=== PATIENT | female | born 1955 | race Caucasian/White ===

== ENCOUNTER → 2016-03-27 | Outpatient (CLI) | payer BC ==
[~2016-03-27] MED LIST: ALBINS/ INH; AZIT250T PO; BIOT1CHW PO; CALC-354 PO; CHOL1000 PO; CHOL100010 PO; FLUO20CA35 PO; GLUCTAB7 PO; HYDC25 PO; HYDR25TA5 PO; LOSA50TA6 PO; MISCTAB26 PO; MULTTAB58 PO; OMEG10007 PO; PRED20TA PO; SPIR1TAB PO; TAUR500C PO; TRAZ100T29 PO
--- NOTE | 2016-03-27 09:42 | DIAGNOSTIC IMAGING REPORT ---
CHEST CT WITHOUT CONTRAST CT DOSE: 272.67 mGycm HISTORY: Pulmonary nodules MULTIPLE PULMONARY NODULES TECHNIQUE: Multiaxial CT images of the chest were performed without contrast. COMPARISON: 06/16/2015 FINDINGS: Stable micronodularity of the upper lung regions. Several small stable calcified granulomas. Triangular density involving the left anterior lingula as well as medial right middle lobe unchanged. The appearance on the lingular findings suggests fibrotic and/or atelectatic change. No significant mediastinal or hilar adenopathy. IMPRESSION: 1. Unchanging micronodularity throughout the upper lungs. 2. Interval small triangular density of the lingula most consistent with that of atelectatic change. Nevertheless a six-month follow-up is again suggested. Please refer to below summary of Fleischner criteria recommendations for follow-up of incidental CT nodules (Beth Cleary, Guidelines for management of small pulmonary nodules detected on CT scans: A statement from the Fleischner Society, Radiology 237: [phone].) Low Risk Patient: Minimal or no smoking or other known risk factors for malignancy <=4 mm: No follow-up needed. >4-6 mm: Initial follow-up CT at 12 months; if unchanged, no further follow-up. >6-8 mm: Initial follow-up CT at 6-12 months then at 18-24 months if no change. >8 mm: Follow-up CT at \R\3, 9, 24 months, or PET and/or biopsy. High Risk Patient: History of smoking or other known risk factors <=4 mm: Follow-up at 12 months; if unchanged, no further follow-up. >4-6 mm: Initial follow-up CT at 6-12 months then at 18-24 months if no change. >6-8 mm: Initial follow-up CT at 3-6 months then at 9-12 and 24 months if no change. >8 mm: Same as low risk patient. Note: Nodule size measured as average of length and width. Ground glass or partly solid nodules may require longer follow-up to exclude indolent adenocarcinoma. Electronically signed by: Marcus Rabago M.D. 03/27/2016 9:41 AM
== END | disposition home or self-care (01) ==
LOC: C.CTS 09:07
PROVIDERS: ATTEND Internal Medicine Pulmonary Disease
DX: R91.8 Other nonspecific abnormal finding of lung field (principal)

== ENCOUNTER → 2016-07-02 | Outpatient (CLI) | payer BC ==
[~2016-07-02] MED LIST changes: -ALBINS/ INH; -AZIT250T PO; -CHOL1000 PO; -HYDR25TA5 PO; -PRED20TA PO
[2016-07-02 13:37] LABS: BASO % 0.2 %; BASO ABS # 0.01 K/uL (0-0.2); COMPLETE YES; EOS % 0.8 %; HEMATOCRIT 40.4 % (37-47); IG% 0.2 %; LYMPH % 25.1 %; LYMPH ABS # 1.48 K/uL (1.2-3.4); MEAN CELL VOLUME 90.4 fL (80-100); MEAN CORPUSCULAR HEMOGLOBIN 30.6 pg (25-34); MEAN CORPUSCULAR HGB CONC 33.9 g/dl (32-36); MEAN PLATELET VOLUME 9.8 fL (7.4-10.4); MONO % 4.6 %; NEUT % 69.1 %; PLATELET COUNT 283 K/uL (130-400); RED BLOOD COUNT 4.47 M/uL (4.2-5.4); WHITE BLOOD COUNT 5.89 K/uL (4.8-10.8)
[2016-07-02 14:11] LABS: ALT/SGPT 29 U/L (12-78); BLOOD UREA NITROGEN 13 mg/dl (7-18); CALCIUM 8.9 mg/dl (8.5-10.1); CARBON DIOXIDE 29 mmol/L (21-32); CHLORIDE 102 mmol/L (98-107); CHOLESTEROL 234 mg/dl (0-200); GLUCOSE 97 mg/dl (70-99); POTASSIUM 3.4 mmol/L (3.5-5.1); SODIUM 139 mmol/L (136-145); TRIGLYCERIDES 178 mg/dl (0-150); VERY LOW DENSITY LIPOPROT CALC 36 mg/dl
[2016-07-02 14:15] LABS: ESTIMATED AVERAGE GLUCOSE 114 mg/dl; HA1C FLAG Normal (Normal)
[2016-07-02 14:21] LABS: ALB/GLOB RATIO 1.1 (0.9-2); ALKALINE PHOSPHATASE 97 U/L (45-117); AST/SGOT 26 U/L (15-37); CHOLESTEROL/HDL RATIO 4.7; HDL CHOLESTEROL 50 mg/dl; LDL CHOLESTEROL CALCULATED 148 mg/dl
== END | disposition home or self-care (01) ==
LOC: C.LAB1850 10:15
PROVIDERS: ATTEND Internal Medicine
DX: Z00.00 Encounter for general adult medical examination without abnormal findings (principal); E78.00 Pure hypercholesterolemia, unspecified; I10 Essential (primary) hypertension; I51.7 Cardiomegaly

== ENCOUNTER → 2016-07-13 | Outpatient (CLI) | payer BC ==
--- NOTE | 2016-07-13 16:33 | MAMMOGRAPHY REPORT ---
BILATERAL DIGITAL SCREENING MAMMOGRAM TOMOSYNTHESIS WITH CAD: 07/13/2016 CLINICAL HISTORY: Routine screening. Patient has no complaints. TECHNIQUE: Breast tomosynthesis in addition to standard 2D mammography was performed. Current study was also evaluated with a Computer Aided Detection (CAD) system. COMPARISON: Comparison is made to exams dated: 07/13/2015 mammogram, 07/09/2014 mammogram, 07/08/2013 mammogram, 07/07/2012 mammogram, 07/09/2011 mammogram, and 07/05/2011 mammogram - [facility]. BREAST COMPOSITION: The tissue of both breasts is heterogeneously dense, which may obscure small ma sses. FINDINGS: No suspicious masses, calcifications, or areas of architectural distortion are noted in e ither breast. There has been no significant interval change compared to prior exams. Scattered bilat eral benign-appearing calcifications are not significantly changed. IMPRESSION: ACR BI-RADS CATEGORY 2: BENIGN There is no mammographic evidence of malignancy. A 1 year screening mammogram is recommended. The p atient will receive written notification of the results. Approximately 10% of breast cancers are not detected with mammography. A negative mammographic repor t should not delay biopsy if a clinically suggestive mass is present. Tammy Stone M.D. ah/:07/13/2016 15:39:23 Corporate Risk Analyst: Clarice FERNANDES(Abdoul)(M), [facility] letter sent: Normal 1/2 BI-RADS Code: ACR BI-RADS Category 2: Benign
== END | disposition home or self-care (01) ==
LOC: C.MAMM 09:07
PROVIDERS: ATTEND Obstetrics & Gynecology
DX: Z12.31 Encounter for screening mammogram for malignant neoplasm of breast (principal)

== ENCOUNTER → 2016-12-27 | Outpatient (CLI) | payer BC ==
--- NOTE | 2016-12-27 09:41 | DIAGNOSTIC IMAGING REPORT ---
(CHEST) THORAX WITHOUT CLINICAL HISTORY: 61 years-old Female presenting with R91.8 Multiple lung nodules on contrast ct chest DO IN Dec. TECHNIQUE: Multidetector CT imaging of the chest was performed without the use of intravenous contrast. IV contrast: None. A dose lowering technique was used consistent with the principles of ALARA (as low as reasonably achievable). COMPARISON: 03/27/2016. CT DOSE (mGy.cm): The estimated cumulative dose is 253.10 mGy.cm. FINDINGS: Analytical Scientist topogram: Unremarkable. On soft tissue windows, normal thyroid and thoracic inlet. No axillary, supraclavicular, or mediastinal lymphadenopathy. Evaluation of the jose limited without intravenous contrast. Normal aorta. Mild multichamber enlargement of the heart. Trace pericardial effusion. No pleural effusion. Upper abdomen normal. On lung windows, interval development of patchy bandlike groundglass opacities at the lung bases, likely atelectasis. Calcified granuloma noted in the lingula. Pulmonary cyst or trace emphysema at the right apex, unchanged. Solid 5 mm right middle lobe pulmonary nodule unchanged (series 4 image 203). Stable punctate nodules at the lung apices. Airways patent. On bone windows, mild degenerative changes of thoracic spine. IMPRESSION: 1. Solid 5 mm right middle lobe nodule is unchanged since 2014. This is consistent with benign etiology. Punctate nodularity at the apices also unchanged. These nodules do not warrant further follow-up per Noni Society 2017 recommendations below. Consider annual screening for lung cancer as clinically indicated if the patient has an extensive smoking history. 2. Bibasilar atelectasis. Please refer to below summary of Fleischner Society 2017 recommendations for follow-up of incidental CT nodules (H Madiha et al. Guidelines for management of incidental pulmonary nodules detected on CT images: From the Fleischner Society 2017. Radiology 2017; 284: 228-243.) SOLID NODULES Single nodule; size < 6 mm * Low risk patients: No routine follow-up * High risk patients: Optional CT at 12 months Single nodule; size 6-8 mm * Low risk patients: CT at 6-12 months, then consider CT at 18-24 months * High risk patients: CT at 6-12 months, then at 18-24 months Single nodule; size > 8 mm * Either low or high risk patients: Considered CT at 3 months, PET/CT, or tissue sampling Multiple nodules; size < 6 mm * Low risk patients: No routine follow up * High risk patients: Optional CT at 12 months Multiple nodules; size 6-8 mm * Low risk patients: CT at 3-6 months, then consider CT at 18-24 months * High risk patients: CT at 3-6 months, then at 18-24 months Multiple nodules; size > 8 mm * Low risk patients: CT at 3-6 months, then consider at 18-24 months * High risk patients: CT at 3-6 months, then at 18-24 months Note: These guidelines apply to incidental nodules. These guidelines do not apply to patients younger than 35 years, immunocompromised patients, or patients with cancer. * Low risk patients: Minimal or absent history of smoking and/or other known risk factors * High risk patients: History of smoking, exposure to other carcinogens, emphysema, fibrosis, upper lobe location, family history of lung cancer, etc. * If a nodule up to 8 mm is partly solid or is ground glass, further follow-up is required after 24 months to exclude possible slow growing adenocarcinoma. SUBSOLID NODULES Single ground-glass nodule * Nodule size < 6 mm: No routine follow-up * Nodule size > or = 6 mm: CT at 6-12 months to confirm persistence, then CT every 2 years until 5 years Single part-solid nodule * Nodule size < 6 mm: No routine follow-up * Nodules size > or = 6 mm: CT at 3-6 months to confirm persistence. If unchanged and solid component remains < 6 mm, annual CT should be performed for 5 years Multiple nodules * Nodule size < 6 mm: CT at 3-6 months. If stable, consider CT at 2 and 4 years. * Nodules size > or = 6 mm: CT at 3-6 months. Subsequent management based on the most suspicious nodule(s) Electronically signed by: Moiz Mojica M.D. 12/27/2016 9:40 AM Dictated Date/Time: 12/27/2016 9:32 AM
== END | disposition home or self-care (01) ==
LOC: C.CTS 09:15
PROVIDERS: ATTEND Internal Medicine Pulmonary Disease
DX: R91.8 Other nonspecific abnormal finding of lung field (principal); J98.11 Atelectasis

== ENCOUNTER → 2017-01-09 | Outpatient (CLI) | payer BC ==
[2017-01-09 09:57] LABS: BLOOD UREA NITROGEN 10 mg/dl (7-18); CARBON DIOXIDE 31 mmol/L (21-32); CHLORIDE 101 mmol/L (98-107); CREATININE 1.01 mg/dl (0.60-1.20); GLUCOSE 100 mg/dl (70-99); MAGNESIUM 2.3 mg/dl (1.8-2.4); POTASSIUM 3.5 mmol/L (3.5-5.1); SODIUM 137 mmol/L (136-145)
[2017-01-09 10:00] LABS: CHOLESTEROL 238 mg/dl (0-200); CHOLESTEROL/HDL RATIO 4.2; HDL CHOLESTEROL 57 mg/dl; LDL CHOLESTEROL CALCULATED 163 mg/dl; TRIGLYCERIDES 92 mg/dl (0-150); VERY LOW DENSITY LIPOPROT CALC 18 mg/dl
== END | disposition home or self-care (01) ==
LOC: C.LAB1850 08:33
PROVIDERS: ATTEND Internal Medicine
DX: I10 Essential (primary) hypertension (principal); E78.00 Pure hypercholesterolemia, unspecified

== ENCOUNTER → 2017-02-11 | Outpatient (CLI) | payer BC ==
--- NOTE | 2017-02-11 16:12 | DIAGNOSTIC IMAGING REPORT ---
CHEST 2 VIEWS ROUTINE CLINICAL HISTORY: COUGH PRODUCTIVE W/ PURULENT SPUTUM dyspnea COMPARISON STUDY: 07/08/2013 FINDINGS: Lungs are considered clear. Mild chronic atelectatic/fibrotic change left lung base. No evidence for cardiac enlargement. IMPRESSION: Chronic change left base. No acute process. The above report was generated using voice recognition software. It may contain grammatical, syntax or spelling errors. Electronically signed by: Marcus Rabago M.D. 02/11/2017 4:11 PM Dictated Date/Time: 02/11/2017 4:11 PM
== END | disposition home or self-care (01) ==
LOC: C.RAD1850 15:58
PROVIDERS: ATTEND Internal Medicine
DX: R05 Cough (principal)

== ENCOUNTER 2017-03-03 09:53 | Emergency (ER) | payer BC ==
[~2017-03-03] VITALS: Ht 160 cm; Wt 74.7 kg
[2017-03-03 09:58] VITALS: TEMP 36.8; Ht 160 cm; Wt 74.7 kg
[2017-03-03] MEDS ORDERED: ALBUT/IPRATROP 3MG/0.5MG NEB 3 ML VIAL INH STA (10:11)
[2017-03-03] MEDS ORDERED: KETOROLAC TROMETHAMINE 30 MG/ML VIAL IV STA (10:11)
[2017-03-03 10:18] VITALS: O2SAT 94
--- NOTE | 2017-03-03 10:40 | DIAGNOSTIC IMAGING REPORT ---
CHEST ONE VIEW PORTABLE HISTORY: 61 years-old Female CHEST PAIN acute atypical chest pain COMPARISON: Chest radiographs 02/11/2017, chest CT 12/27/2016 TECHNIQUE: Portable AP view of the chest FINDINGS: Cardiac silhouette appears mildly enlarged. No pneumothorax, pleural effusion, focal airspace consolidation or overt pulmonary edema. Bones of the chest appear grossly intact. IMPRESSION: No acute cardiopulmonary process. The above report was generated using voice recognition software. It may contain grammatical, syntax or spelling errors. Electronically signed by: Jonah Gonzalez M.D. 03/03/2017 10:38 AM Dictated Date/Time: 03/03/2017 10:37 AM
[2017-03-03] MEDS ORDERED: CHOL1000 PO (10:42)
[2017-03-03] MEDS ORDERED: HYDR25TA5 PO (10:42)
[2017-03-03 10:47] LABS: BASO % 0.1 %; BASO ABS # 0.01 K/uL (0-0.2); COMPLETE YES; EOS % 1.3 %; HEMATOCRIT 38.7 % (37-47); IG% 0.1 %; LYMPH % 25.6 %; LYMPH ABS # 1.82 K/uL (1.2-3.4); MEAN CELL VOLUME 91.3 fL (80-100); MEAN CORPUSCULAR HEMOGLOBIN 30.9 pg (25-34); MEAN CORPUSCULAR HGB CONC 33.9 g/dl (32-36); MEAN PLATELET VOLUME 9.3 fL (7.4-10.4); MONO % 5.6 %; NEUT % 67.3 %; PLATELET COUNT 252 K/uL (130-400); RED BLOOD COUNT 4.24 M/uL (4.2-5.4); WHITE BLOOD COUNT 7.11 K/uL (4.8-10.8)
[2017-03-03 11:03] LABS: ALT/SGPT 20 U/L (12-78); BLOOD UREA NITROGEN 14 mg/dl (7-18); BUN/CREATININE RATIO 13.1 (10-20); CALCIUM 8.6 mg/dl (8.5-10.1); CARBON DIOXIDE 28 mmol/L (21-32); CHLORIDE 106 mmol/L (98-107); CREATININE 1.04 mg/dl (0.60-1.20); GLUCOSE 99 mg/dl (70-99); POTASSIUM 3.4 mmol/L (3.5-5.1); SODIUM 139 mmol/L (136-145)
--- NOTE | 2017-03-03 11:12 | EMERGENCY ROOM VISIT NOTE ---
History Report prepared by Rylan: Raymundo Amado Under the Supervision of: Dr. Mp Daniels M.D. 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 She was seen by her PCP February 11, 2017 for her symptoms and was given Zithromax, which she completed. She reports thick yellow mucus prior to the antibiotic treatment, though the mucus is now thick and white in color. She notes excruciating right chest pain, wheezing and gurgling, The patient notes the chest pain is exacerbated by her cough. She currently rates her pain a 7/10 in severity. She denies nausea, vomiting, diarrhea, urinary symptoms, fevers, and chills. She has used a heating pad and taken extra strength Tylenol, which has provided mild relief. She notes a history of chronic cough, though it has never been this bad. She denies a history of PNA, CAD, and blood clots. The patient has a family history of CAD <50 (maternal grandmother). The patient is on a beta -rajan. 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 A total of ten systems were reviewed and were otherwise negative. Past Medical & Surgical Medical Problems: (1) Asthma (2) Chronic cough (3) Herniated disc Surgical Problems: (1) History of back surgery Family History Cancer Hypertension Social History Smoking Status: Never Smoker Smokeless Tobacco Use: No Alcohol Use: occasionally Drug Use: none Marital Status: Housing Status: lives with significant other Occupation Status: unemployed Current/Historical Medications Scheduled Albuterol Sulf (Proventil 0.083% 2.5MG/3ML), 2.5 MG INH QID Azithromycin (Zithromax), 250 MG PO DAILY Biotin W/ Vitamins C & E (Hair Skin & Nails ... 1250-7.5-7.5 Mcg-mg-Unt), 1 TAB PO BID Calcium Carbonate-Cholecalcife (Caltrate 600+D), 1 TAB PO HS Cholecalciferol (Vitamin D3), 1 TAB PO DAILY Fish Oil ([place]land-3), 1 CAP PO QAM Fluoxetine (Prozac), 20 MG PO QAM Okhkirrrslu-Tqpxmerpymo-Ffn C- (Glucosamine Chondroitin), 1 TAB PO BID Hydrochlorothiazide (Hydrochlorothiazide), 1 TAB PO DAILY Losartan Potassium (Cozaar), 50 MG PO QAM Misc Natural Products (Ginkgo Biloba), 1 TAB PO QAM Multiple Vitamin (Multivitamin), 1 TAB PO QAM Prednisone (Prednisone), 3 TAB PO DAILY Spirulina (Spirulina), 1 TAB PO BID Taurine (Taurine), 1 CAP PO QAM Trazodone Hcl (Trazodone), 100 MG PO HS Allergies Coded Allergies: Iodine (Unverified Allergy, Mild, "SWELLED UP", 03/03/17) Lisinopril (Verified Adverse Reaction, Unknown, COUGH, 03/03/17) Physical Exam Vital Signs Date Time Temp Pulse Resp B/P (MAP) Pulse Ox O2 Delivery O2 Flow Rate FiO2 03/03/17 12:56 45 16 145/72 98 Room Air 03/03/17 11:22 43 16 162/89 96 Room Air 03/03/17 11:02 43 03/03/17 10:40 94 Room Air 03/03/17 10:18 94 Room Air 03/03/17 09:58 36.8 56 18 183/104 94 Physical Exam GENERAL: Awake, alert, well-appearing, in no distress HENT: Normocephalic, atraumatic. Oropharynx shows dry mucus membranes. EYES: Normal conjunctiva. Sclera non-icteric. NECK: Supple. No nuchal rigidity. FROM. No JVD. RESPIRATORY: Scant rhonchi at bases with scant wheezes. CARDIAC: Regular rate, normal rhythm. Extremities warm and well perfused. Pulses equal. ABDOMEN: Soft, non-distended. No tenderness to palpation. No rebound or guarding. No masses. RECTAL: Deferred. MUSCULOSKELETAL: Chest examination reveals no tenderness. The back is symmetrical on inspection without obvious abnormality. There is no CVA tenderness to palpation. No joint edema. LOWER EXTREMITIES: Calves are equal size bilaterally and non-tender. No edema. No discoloration. NEURO: Normal sensorium. No sensory or motor deficits noted. SKIN: No rash or jaundice noted. Medical Decision & Procedures ER Provider Diagnostic Interpretation: Radiology results as stated below per my review and radiologist interpretation: CHEST ONE VIEW PORTABLE HISTORY: 61 years-old Female CHEST PAIN acute atypical chest pain COMPARISON: Chest radiographs 02/11/2017, chest CT 12/27/2016 TECHNIQUE: Portable AP view of the chest FINDINGS: Cardiac silhouette appears mildly enlarged. No pneumothorax, pleural effusion, focal airspace consolidation or overt pulmonary edema. Bones of the chest appear grossly intact. IMPRESSION: No acute cardiopulmonary process. The above report was generated using voice recognition software. It may contain grammatical, syntax or spelling errors. Electronically signed by: Jonah Gonzalez M.D. 03/03/2017 10:38 AM Dictated Date/Time: 03/03/2017 10:37 AM Laboratory Results 03/03/17 10:24 Red Blood Count 4.24, Mean Corpuscular Volume 91.3, Mean Corpuscular Hemoglobin 30.9, Mean Corpuscular Hemoglobin Concent 33.9, Mean Platelet Volume 9.3, Neutrophils (%) (Auto) 67.3, Lymphocytes (%) (Auto) 25.6, Monocytes (%) (Auto) 5.6, Eosinophils (%) (Auto) 1.3, Basophils (%) (Auto) 0.1, Neutrophils # (Auto) 4.78, Lymphocytes # (Auto) 1.82, Monocytes # (Auto) 0.40, Eosinophils # (Auto) 0.09, Basophils # (Auto) 0.01 03/03/17 10:24 Test 03/03/17 10:24 White Blood Count 7.11 K/uL (4.8-10.8) Red Blood Count 4.24 M/uL (4.2-5.4) Hemoglobin 13.1 g/dL (12.0-16.0) Hematocrit 38.7 % (37-47) Mean Corpuscular Volume 91.3 fL (80-100) Mean Corpuscular Hemoglobin 30.9 pg (25-34) Mean Corpuscular Hemoglobin Concent 33.9 g/dl (32-36) Platelet Count 252 K/uL (130-400) Mean Platelet Volume 9.3 fL (7.4-10.4) Neutrophils (%) (Auto) 67.3 % Lymphocytes (%) (Auto) 25.6 % Monocytes (%) (Auto) 5.6 % Eosinophils (%) (Auto) 1.3 % Basophils (%) (Auto) 0.1 % Neutrophils # (Auto) 4.78 K/uL (1.4-6.5) Lymphocytes # (Auto) 1.82 K/uL (1.2-3.4) Monocytes # (Auto) 0.40 K/uL (0.11-0.59) Eosinophils # (Auto) 0.09 K/uL (0-0.5) Basophils # (Auto) 0.01 K/uL (0-0.2) RDW Standard Deviation 42.3 fL (36.4-46.3) RDW Coefficient of Variation 12.5 % (11.5-14.5) Immature Granulocyte % (Auto) 0.1 % Immature Granulocyte # (Auto) 0.01 K/uL (0.00-0.02) Anion Gap 5.0 mmol/L (3-11) Est Creatinine Clear Calc Drug Dose 55.0 ml/min Estimated GFR () 67.2 Estimated GFR (Non- 57.9 BUN/Creatinine Ratio 13.1 (10-20) Calcium Level 8.6 mg/dl (8.5-10.1) Total Bilirubin 0.3 mg/dl (0.2-1) Direct Bilirubin < 0.1 mg/dl (0-0.2) Aspartate Amino Transf (AST/SGOT) 20 U/L (15-37) Alanine Aminotransferase (ALT/SGPT) 20 U/L (12-78) Alkaline Phosphatase 104 U/L (45-117) Troponin I < 0.015 ng/ml (0-0.045) Total Protein 7.2 gm/dl (6.4-8.2) Albumin 3.7 gm/dl (3.4-5.0) Lipase 368 U/L (73-393) Laboratory results reviewed by me Medications Administered Medications (Trade) Dose Ordered Sig/[place] Route Start Time Stop Time Status Last Admin Dose Admin Albuterol/ Ipratropium (Duoneb) 3 ml NOW STAT INH 03/03/17 10:11 03/03/17 10:17 DC 03/03/17 10:31 3 ML Ketorolac Tromethamine (Toradol Inj) 15 mg NOW STAT IV 03/03/17 10:11 03/03/17 10:17 DC 03/03/17 10:32 15 MG Albuterol (Ventolin Hfa Inhaler) 2 puffs NOW ONCE INH 03/03/17 12:30 03/03/17 12:31 DC 03/03/17 12:45 2 PUFFS Azithromycin (Zithromax Tab) 500 mg NOW STAT PO 03/03/17 12:23 03/03/17 12:28 DC 03/03/17 12:45 500 MG Prednisone (PredniSONE TAB) 60 mg NOW STAT PO 03/03/17 12:23 03/03/17 12:28 DC 03/03/17 12:45 60 MG ECG Indication: other (productive cough) Rate (beats per minute): 45 Rhythm: sinus bradycardia Findings: no acute ischemic change, other (Normal axis) ED Course 1011: The patient was evaluated in room B8. A complete history and physical exam was performed. 1312: I reassessed the patient at this time. She is feeling better and resting comfortably. I discussed the results and treatment plan with the patient. I answered all pertaining questions that she had. She expressed understanding and verbalized agreement. The patient will be discharged home. Medical Decision I reviewed the patient's past medical history, medications, and the nursing notes as described above. The patient's presentation and history were concerning for PNA, bronchitis, ACS , CHF, PE, and musculoskeletal strain. The patient is a 61-year-old woman who presents emergency Department with persisting cough and congestion for the past several weeks per hpi. On arrival the patient is uncomfortable but in no acute distress, afebrile with stable vital signs. The patient does have scattered rhonchi and isolated wheezes at the base on exam. Labs unremarkable including WBC and trop wnl. EKG unremarkable. CXR negative for PNA. Patient given neb with improvement in sx. Reproducible right CW pain also improved after toradol suggesting muscular strain. PE not likely given not hypoxic or tachycardic. Given patient persistent sx will treat with Azithro, prednisone, MDI. Plan for pcp f/u. Findings and plan for follow-up reviewed with patient. Patient agreeable and d/c 'd per discharge instructions. Medication Reconcilliation Current Medication List: was personally reviewed by me Blood Pressure Screening Patient's blood pressure: Elevated blood pressure Blood pressure disposition: Elevated BP felt to be situational Impression Primary Impression: Bronchitis Scribe Attestation The scribe's documentation has been prepared under my direction and personally reviewed by me in its entirety. I confirm that the note above accurately reflects all work, treatment, procedures, and medical decision making performed by me. Departure Information Dispostion Home / Self-Care Prescriptions Albuterol Sulf (PROVENTIL 0.083% 2.5MG/3ML) 2.5 Mg/3 Ml Nebu 2.5 MG INH QID, #1 INHALER Prov: Mp Daniels M.D. 03/03/17 Prednisone (Prednisone) 20 Mg Tab 3 TAB PO DAILY for 4 Days, #12 TAB FOR 4 DAYS Prov: Mp Daniels M.D. 03/03/17 Azithromycin (Zithromax) 250 Mg Tab 250 MG PO DAILY, #4 TAB Prov: Mp Daniels M.D. 03/03/17 Referrals Hung Renteria M.D. (PCP) Forms HOME CARE DOCUMENTATION FORM, IMPORTANT VISIT INFORMATION, WORK / SCHOOL INSTRUCTIONS Patient Instructions Bronchitis Acute, My [facility] Additional Instructions Please follow up with your primary care physician in the next 1-3 days for re- evaluation. You likely have a bronchitis. Otherwise, your exam, EKG, chest xray, and lab results did not show signs of an emergent condition at this time. Azithromycin and prednisone as directed. Acetaminophen and Ibuprofen for pain and fevers as needed. Albuterol inhaler 2 puffs every 4 hours for the next 48 hours and then as needed thereafter. Ensure hydration. Return to the emergency department for worsening symptoms as described in the accompanying instructions.
[2017-03-03 11:13] LABS: ALKALINE PHOSPHATASE 104 U/L (45-117); AST/SGOT 20 U/L (15-37)
[2017-03-03] MEDS ORDERED: PRED20TA PO (12:21)
[2017-03-03] MEDS ORDERED: AZIT250T PO (12:21)
[2017-03-03] MEDS ORDERED: ALBINS/ INH (12:23)
[2017-03-03] MEDS ORDERED: AZITHROMYCIN 250 MG TAB PO STA (12:23)
[2017-03-03] MEDS ORDERED: ALBUTEROL HFA 8 GM INHALER INH ONE (12:30)
[2017-03-03 12:56] VITALS: BP 145/72; PULSE 45; O2SAT 98
== END 2017-03-03 13:12 | disposition home or self-care (01) ==
LOC: C.EDB 09:54
DX: J40 Bronchitis, not specified as acute or chronic (principal); R07.9 Chest pain, unspecified

== ENCOUNTER → 2017-07-09 | Outpatient (CLI) | payer BC ==
[~2017-07-09] MED LIST changes: +ALBINS/ INH; +AZIT250T PO; +CHOL1000 PO; -CHOL100010 PO; -HYDC25 PO; +HYDR25TA5 PO
[2017-07-09 12:27] LABS: HEMATOCRIT 40.8 % (37-47); HEMOGLOBIN 13.9 g/dL (12.0-16.0); MEAN CELL VOLUME 89.9 fL (80-100); MEAN CORPUSCULAR HEMOGLOBIN 30.6 pg (25-34); MEAN CORPUSCULAR HGB CONC 34.1 g/dl (32-36); MEAN PLATELET VOLUME 9.2 fL (7.4-10.4); PLATELET COUNT 297 K/uL (130-400); RED CELL DISTRIBUTION WIDTH CV 12.7 % (11.5-14.5); RED CELL DISTRIBUTION WIDTH SD 41.7 fL (36.4-46.3); WHITE BLOOD COUNT 6.48 K/uL (4.8-10.8)
[2017-07-09 13:16] LABS: ALT/SGPT 22 U/L (12-78); AST/SGOT 20 U/L (15-37); BLOOD UREA NITROGEN 12 mg/dl (7-18); CALCIUM 9.3 mg/dl (8.5-10.1); CARBON DIOXIDE 30 mmol/L (21-32); CHOLESTEROL 269 mg/dl (0-200); CREATININE 1.15 mg/dl (0.60-1.20); GLUCOSE 99 mg/dl (70-99); POTASSIUM 3.8 mmol/L (3.5-5.1); SODIUM 136 mmol/L (136-145)
[2017-07-09 13:27] LABS: LDL CHOLESTEROL CALCULATED 191 mg/dl
== END | disposition home or self-care (01) ==
LOC: C.LAB1850 11:06
PROVIDERS: ATTEND Internal Medicine
DX: I10 Essential (primary) hypertension (principal); E78.00 Pure hypercholesterolemia, unspecified; R00.1 Bradycardia, unspecified

== ENCOUNTER → 2017-07-16 | Outpatient (CLI) | payer BC ==
--- NOTE | 2017-07-17 15:30 | MAMMOGRAPHY REPORT ---
BILATERAL DIGITAL SCREENING MAMMOGRAM TOMOSYNTHESIS WITH CAD: 07/16/2017 CLINICAL HISTORY: Routine screening. TECHNIQUE: Breast tomosynthesis in addition to standard 2D mammography was performed. Current study was also evaluated with a Computer Aided Detection (CAD) system. COMPARISON: Comparison is made to exams dated: 07/13/2016 mammogram, 07/13/2015 mammogram, 07/09/2014 m ammogram, 07/08/2013 mammogram, 07/07/2012 mammogram, and 07/05/2011 mammogram - [facility] enter. BREAST COMPOSITION: The tissue of both breasts is heterogeneously dense, which may obscure small mas ses. FINDINGS: The parenchymal pattern is similar to prior mammograms. There are scattered benign rim ca lcifications and mild vascular calcification in the breasts. No developing mass, architectural disto rtion or cluster of suspicious microcalcifications is seen. IMPRESSION: ACR BI-RADS CATEGORY 2: BENIGN There is no mammographic evidence of malignancy. A 1 year screening mammogram is recommended. The pa tient will receive written notification of the results. Approximately 10% of breast cancers are not detected with mammography. A negative mammographic report should not delay biopsy if a clinically suggestive mass is present. Yareli Bautista M.D. ay/:07/16/2017 15:22:17 Unit Assistant: Clarice FERNANDES(Abdoul)(), [facility] letter sent: Normal 1/2 BI-RADS Code: ACR BI-RADS Category 2: Benign
== END | disposition home or self-care (01) ==
LOC: C.MAMM 09:05
PROVIDERS: ATTEND Obstetrics & Gynecology
DX: Z12.31 Encounter for screening mammogram for malignant neoplasm of breast (principal)